=== PATIENT | male | born 1985 ===

== ENCOUNTER 2017-12-15 04:22 | Emergency (ER) | payer BC ==
[2017-12-15 04:30] VITALS: TEMP 97.9; O2SAT 100
--- NOTE | 2017-12-15 05:15 | ED PDOC ---
HPI: Psych/Substance Abuse Time Seen by Provider: 12/15/17 04:29 Chief Complaint (Nursing): Alcohol Ingestion ED Caveat: Intoxicated History Per: Patient Onset/Duration Of Symptoms: Hrs Current Symptoms Are (Timing): Better Modifying Factor(s): Alcohol Additional Complaint(s): Hx of epidermolysis bullosa and alcohol abuse presenting with alcohol abuse, states that he felt he was going to go into withdrawal at home so he drank beer and hard liquor and called 911. States he vomited as well. Denies tremors, shaking, hallucination, or other symptoms. Denies drug use. Past Medical History Reviewed: Historical Data, Nursing Documentation, Vital Signs Vital Signs: Last Vital Signs Temp 97.9 F 12/15/17 04:23 Pulse 99 H 12/15/17 04:23 Resp 16 12/15/17 04:23 BP 137/76 12/15/17 04:23 Pulse Ox 100 12/15/17 04:23 - Family History Family History: States: Unknown Family Hx - Allergies Allergies/Adverse Reactions: Allergies Allergy/AdvReac Type Severity Reaction Status Date / Time adhesive Allergy RASH Verified 12/15/17 04:30 Review of Systems ROS Statement: Except As Marked, All Systems Reviewed And Found Negative Gastrointestinal: Positive for: Vomiting Physical Exam - Reviewed Nursing Documentation Reviewed: Yes Vital Signs Reviewed: Yes - Physical Exam Appears: Positive for: Well, Non-toxic, No Acute Distress Head Exam: Positive for: ATRAUMATIC, NORMAL INSPECTION, NORMOCEPHALIC Skin: Positive for: Rash (Scattered chronic appearing bullae in hands) Eye Exam: Positive for: EOMI, Normal appearance, PERRL ENT: Positive for: Normal ENT Inspection Neck: Positive for: Normal, Painless ROM Cardiovascular/Chest: Positive for: Regular Rate, Rhythm Respiratory: Positive for: CNT, Normal Breath Sounds Gastrointestinal/Abdominal: Positive for: Normal Exam, Soft. Negative for: Tenderness Back: Positive for: Normal Inspection Extremity: Positive for: Normal ROM Neurologic/Psych: Positive for: Alert, Oriented - ECG O2 Sat by Pulse Oximetry: 100 Pulse Ox Interpretation: Normal Medical Decision Making Medical Decision Makin Patient presenting with potential alcohol withdrawal -currently no sequelae of withdrawal (no fasiculations, tremors, etc) -will give zofran odt for nausea and vomiting 530 -Tolerating PO, well appearing -Will d/c home -Advised to followup at [facility] for alcohol detox Disposition - Clinical Impression Clinical Impression: Alcohol abuse - Patient ED Disposition Is Patient to be Admitted: No - Disposition Referrals: Alcoholics Anonymous [Outside] Disposition: Routine/Home Disposition Time: 05:31 Condition: STABLE Instructions: Alcohol Abuse and Alcoholism (DC) Forms: [employer] (Khmer)
[2017-12-15 05:46] VITALS: BP 145/76; PULSE 89; RESP 24
== END 2017-12-15 05:48 | disposition home or self-care (01) ==
LOC: H.ER 04:22
DX: F10.10 Alcohol abuse, uncomplicated (principal)